=== PATIENT | female | born 1995 | race Caucasian/White ===

== ENCOUNTER 2017-11-08 18:03 | Inpatient (IN) | payer OTHER ==
[~2017-11-08] VITALS: Ht 154.9 cm; Wt 58.1 kg
[~2017-11-08 18:03] MED LIST: AMOXICILLIN250 MG PO; MACROBID 100 M100 MG PO; PRENATAL CAPSU1 EACH
[2017-11-09] MEDS ORDERED: PRENATAL 19 TA1 EACH PO (09:20)
== END 2017-11-11 12:14 | disposition home or self-care (01) | DRG 775 ==
LOC: LDR 11-09 07:03 → OB/GYN 11-09 07:03 → LDR 11-14 18:02
PROC: 10E0XZZ Delivery of Products of Conception, External Approach (ICD-10-PCS; principal; 2017-11-09)
PROC: 0W8NXZZ Division of Female Perineum, External Approach (ICD-10-PCS; 2017-11-09)
PROC: 4A1HXCZ Monitoring of Products of Conception, Cardiac Rate, External Approach (ICD-10-PCS; 2017-11-09)
PROC: 3E033VJ Introduction of Other Hormone into Peripheral Vein, Percutaneous Approach (ICD-10-PCS; 2017-11-09)
PROC: 4A033R1 Measurement of Arterial Saturation, Peripheral, Percutaneous Approach (ICD-10-PCS; 2017-11-09)
DX: O80 Encounter for full-term uncomplicated delivery (principal); Z3A.39 39 weeks gestation of pregnancy; Z37.0 Single live birth

== ENCOUNTER 2018-12-10 11:35 | Emergency (ER) | payer OTHER ==
[~2018-12-10] VITALS: Ht 152.4 cm; Wt 45.4 kg
[~2018-12-10 11:35] MED LIST changes: +PRENATAL 19 TA1 EACH PO
== END 2018-12-10 16:37 | disposition home or self-care (01) ==
LOC: ER 11:35
DX: B34.9 Viral infection, unspecified (principal)

== ENCOUNTER 2021-03-10 12:35 | Emergency (ER) | payer OTHER ==
[~2021-03-10] VITALS: Ht 154.9 cm; Wt 49.9 kg
== END 2021-03-10 16:35 | disposition home or self-care (01) ==
LOC: ER 12:35
DX: B34.9 Viral infection, unspecified (principal); R53.81 Other malaise; R05 Cough; R09.81 Nasal congestion

== ENCOUNTER 2021-07-21 12:08 | Emergency (ER) | payer OTHER ==
[~2021-07-21] VITALS: Ht 154.9 cm; Wt 49.0 kg
[2021-07-21] MEDS ORDERED: PRENA1 CHEW TA1.4 MG PO (12:19)
== END 2021-07-21 12:27 | disposition home or self-care (01) ==
LOC: ER 12:08
DX: L30.8 Other specified dermatitis (principal)

== ENCOUNTER 2021-09-21 10:43 | Emergency (ER) | payer OTHER ==
[~2021-09-21] VITALS: Ht 154.9 cm; Wt 54.4 kg
[~2021-09-21 10:43] MED LIST changes: +PRENA1 CHEW TA1.4 MG PO
== END 2021-09-21 17:35 | disposition home or self-care (01) ==
LOC: ER 10:43
DX: N39.0 Urinary tract infection, site not specified (principal); R42 Dizziness and giddiness

== ENCOUNTER → 2021-09-25 | Outpatient (CLI) | payer OTHER | END | disposition home or self-care (01) | LOC: NST 23:02 | PROVIDERS: ATTEND Obstetrics & Gynecology | DX: Z34.82 Encounter for supervision of other normal pregnancy, second trimester (principal) ==

== ENCOUNTER 2024-04-25 14:07 | Emergency (ER) | payer OTHER ==
[~2024-04-25] VITALS: Ht 154.9 cm; Wt 45.4 kg
[2024-04-25 14:49] VITALS: BP 122/79; O2SAT 100
[2024-04-25] MEDS ORDERED: TRIAMCINOLONE ACETONIDE 40 MG/ML VIAL IM ONE (16:45)
[2024-04-25] MEDS ORDERED: ORPHENADRINE CITRATE 30 MG/ML AMPUL IM ONE (16:45)
== END 2024-04-25 16:50 | disposition home or self-care (01) ==
LOC: ER 14:08
DX: M94.0 Chondrocostal junction syndrome [Tietze] (principal)

== ENCOUNTER 2024-06-28 10:59 | Emergency (ER) | payer OTHER ==
[~2024-06-28] VITALS: Ht 154.9 cm; Wt 45.4 kg
[2024-06-28] MEDS ORDERED: NEURONTIN300 MG PO (12:36)
[2024-06-28] MEDS ORDERED: ZOVIRAX800 MG PO (12:36)
[2024-06-28] MEDS ORDERED: PEPCID AC20 MG PO (12:36)
[2024-06-28] MEDS ORDERED: ZOVIRAX5 GM TOP (12:36)
[2024-06-28] MEDS ORDERED: FAMOtidine 20 MG TABLET PO ONE (12:45)
[2024-06-28] MEDS ORDERED: TRAMADOL HCL 50 MG TABLET PO ONE (12:45)
== END 2024-06-28 12:50 | disposition home or self-care (01) ==
LOC: ER 11:01
DX: B02.8 Zoster with other complications (principal); Z88.8 Allergy status to other drugs, medicaments and biological substances